=== PATIENT | male | born 1980 | race African-American/Black ===

== ENCOUNTER 2023-01-15 05:54 | Emergency (ER) | payer MEDICAID, OTHER ==
[~2023-01-15] VITALS: Ht 175.3 cm; Wt 127.0 kg
[2023-01-15 06:18] VITALS: BP 135/89
[2023-01-15] MEDS ORDERED: PRED20TA2 PO (06:46)
[2023-01-15] MEDS ORDERED: FLUT1SPR5 (06:46)
[2023-01-15] MEDS ORDERED: AUG875T PO (06:46)
== END 2023-01-15 06:55 | disposition home or self-care (01) ==
LOC: ER 05:54
DX: J01.90 Acute sinusitis, unspecified (principal)

== ENCOUNTER 2023-01-28 01:51 | Emergency (ER) | payer MEDICAID ==
[~2023-01-28] VITALS: Ht 175.3 cm; Wt 135.7 kg
[~2023-01-28 01:51] MED LIST: AUG875T PO; FLUT1SPR5; PRED20TA2 PO
[2023-01-28 03:12] LABS: Basophils # (auto) 0.1 10 ^3/uL (0-0.2); Nucleated Red Blood Cells % 0.1 %
[2023-01-28 03:14] LABS: Basophils % (auto) 0.6 % (0.0-2.0); Eosinophils # (auto) 0.5 10 ^3/uL (0-0.8); Eosinophils % (auto) 4.7 % (0.0-7.0); Hematocrit 42.7 % (41.0-53.0); Lymphocytes # (auto) 2.7 10 ^3/uL (0.4-5.4); Lymphocytes % (auto) 25.5 % (10.0-50.0); Mean Corpuscular Hemoglobin 26.8 pg (28.0-32.0); Mean Corpuscular Hgb Conc. 32.9 g/dL (32.0-36.0); Mean Corpuscular Volume 81.4 fL (80.0-100.0); Monocytes # (auto) 1.1 10 ^3/uL (0-1.3); Monocytes % (auto) 10.1 % (0.0-12.0); Neutrophils # (auto) 6.3 10 ^3/uL (1.6-8.6); Neutrophils % (auto) 59.1 % (37.0-80.0); Red Blood Cells 5.25 10^6/uL (4.5-5.90); Red Cell Distribution Width 15.8 % (11.8-14.3); White Blood Cell 10.6 10^3/uL (4.4-10.8)
[2023-01-28 03:31] LABS: INR 0.94 (0.9-1.15); Partial Thromboplastin Time 28.4 sec (24.6-33.4)
[2023-01-28 03:36] LABS: Albumin 3.4 g/dL (3.4-5.0); BUN/Creatinine Ratio 12.6 (10.0-20.0); Calcium 8.8 mg/dL (8.5-10.1); Magnesium 2.2 mg/dL (1.6-2.6); Potassium 3.7 mmol/L (3.5-5.1)
[2023-01-28 03:40] LABS: Bilirubin, Total 0.2 mg/dL (0.2-1.0); Total Protein 7.1 g/dL (6.4-8.2)
[2023-01-28] MEDS ORDERED: DexAMETHasone SOD PHOS 10MG/1ML VIAL INJ IM ONE (05:15)
[2023-01-28] MEDS ORDERED: AZITHROMYCIN 250 MG TAB PO ONE (05:15)
[2023-01-28] MEDS ORDERED: AZIT250T9 PO (05:50)
[2023-01-28 06:10] VITALS: BP 147/93
== END 2023-01-28 06:17 | disposition home or self-care (01) ==
LOC: ER 01:51
DX: J20.9 Acute bronchitis, unspecified (principal); R07.89 Other chest pain
CPT/HCPCS: 36415; 71045; 80053; 83735; 83880; 84484; 85025; 85610; 85730; 96372; 99284; J1100